=== PATIENT | female | born 1965 | race Two or more races ===

== ENCOUNTER 2022-05-07 09:26 | Outpatient (CLI) | payer OTHER, SELFPAY ==
--- NOTE | ~2022-05-07 | CT_ITS ---
EXAMINATION: CT soft tissue neck wo con DATE: 05/07/2022 09:56 INDICATION: Tongue cancer. Neck mass. TECHNIQUE: Computed tomography (CT) of the neck was performed without intravenous contrast. Automated exposure control and iterative reconstruction technique were employed. The dose-length product was 5 50.81 mGy-cm. COMPARISON: None FINDINGS: There is a 10 x 12 mm high left internal jugular chain node. There is a 2.5 x 1.8 cm mid le ft internal jugular chain node. The mastoid air cells are normal. The paranasal sinuses are clear. Th ere is moderate cervical spondylosis. There is a 6 mm radiopaque foreign body in the left posterior n daiana. IMPRESSION: 1. Left internal jugular chain lymphadenopathy, consistent with metastatic disease. Reviewed, dictated and finalized at location A. IMPRESSION: 1. Left internal jugular chain lymphadenopathy, consistent with metastatic dise ase.
== END 2022-05-07 09:27 | disposition home or self-care (01) ==
LOC: ANHIMG 09:30
PROVIDERS: PCP Nurse Practitioner Family; Visit Provider Nurse Practitioner Family
DX: C02.9 Malignant neoplasm of tongue, unspecified (principal); R22.1 Localized swelling, mass and lump, neck
CPT/HCPCS: 70490